=== PATIENT | female | born 1970 | race African-American/Black ===

== ENCOUNTER 2016-12-24 07:26 | Emergency (ER) | payer OTHER ==
[~2016-12-24] VITALS: Ht 165.1 cm; Wt 59.0 kg
[2016-12-24 08:24] LABS: BASOPHILS % 2.1 % (0.0-2.0); EOSINOPHILS % 2.2 % (0.0-5.0); HEMATOCRIT. 26.1 % (36.0-48.0); HEMOGLOBIN. 7.8 g/dL (12.0-16.0); LYMPHOCYTES % 32.8 % (20.0-50.0); MEAN CORPUSCULAR HEMOGLOBIN 18.6 pg (28.0-32.0); MEAN CORPUSCULAR VOLUME 62.4 fL (81.0-99.0); MEAN PLATELET VOLUME 8.7 fl (7.4-10.4); NEUTROPHILS % 53.9 % (40.0-76.0); PLATELET 177 x1000/uL (130-400); RED BLOOD CELL COUNT 4.18 mill/uL (4.2-5.4)
[2016-12-24 08:35] LABS: AMMONIA 13 uMol/L (<32)
[2016-12-24 08:38] LABS: CARBON DIOXIDE 26 mEq/L (21-32); CHLORIDE 108 mEq/L (98-107); CREATINE KINASE 69 IU/L (26-192); ETHANOL BLOOD < 10 mg/dL
[2016-12-24 08:48] LABS: PLATELET ESTIMATE NORMAL
[2016-12-24] MEDS ORDERED: ASPIRIN 325MG TABLET PO ONE (09:45)
[2016-12-24 10:38] LABS: CLARITY URINE CLEAR (CLEAR); COLOR URINE YELLOW (YELLOW); GLUCOSE URINE NEGATIVE (NEGATIVE); KETONES URINE NEGATIVE (NEGATIVE); LEUKOCYTE ESTERASE URINE NEGATIVE (NEGATIVE); NITRITE URINE NEGATIVE (NEGATIVE); OCCULT BLOOD URINE NEGATIVE (NEGATIVE); PH URINE 5.5 (4.5-8.0); PROTEIN URINE NEGATIVE (NEGATIVE); SPECIFIC GRAVITY URINE 1.016 (1.005-1.030); UROBILINOGEN URINE 0.2 E.U./dL (0.2-1.0)
[2016-12-24 11:08] LABS: *AMPHETAMINES SCREEN URINE NEGATIVE (NEGATIVE); *BARBITURATES SCREEN URINE NEGATIVE (NEGATIVE); *BENZODIAZEPINES SCREEN URINE NEGATIVE (NEGATIVE); *COCAINE SCREEN URINE NEGATIVE (NEGATIVE); CANNABINOID URINE SCREEN PRESUMTIVE POSITIVE (NEGATIVE); METHADONE URINE SCREEN NEGATIVE (NEGATIVE); OPIATES URINE SCREEN NEGATIVE (NEGATIVE); PHENCYCLIDINE URINE SCREEN NEGATIVE (NEGATIVE)
[2016-12-24 12:55] VITALS: BP 118/72
== END 2016-12-24 12:59 | disposition left against medical advice (07) ==
LOC: ER 07:59 → EDBEDREQ 10:11 → CANRESERV 11:51 → ENRESERV 11:51 → CANBEDREQ 12:57 → ER 12:59
DX: S00.93XA Contusion of unspecified part of head, initial encounter (principal); R55 Syncope and collapse; M54.2 Cervicalgia; K13.79 Other lesions of oral mucosa; F17.200 Nicotine dependence, unspecified, uncomplicated; F12.10 Cannabis abuse, uncomplicated; W19.XXXA Unspecified fall, initial encounter; Y93.01 Activity, walking, marching and hiking; Y92.89 Other specified places as the place of occurrence of the external cause; Y99.8 Other external cause status
CPT/HCPCS: 36415; 70450; 70551; 71010; 80053; 80305; 81003; 81025; 82140; 82550; 82962; 83605; 83690; 85025; 93005; 99285; G0482; Z7610

== ENCOUNTER 2019-03-04 15:58 | Emergency (ER) | payer SELFPAY ==
[~2019-03-04] VITALS: Ht 167.6 cm; Wt 65.0 kg
[2019-03-05] MEDS ORDERED: ONDANSETRON 4MG ODT PO ONE
[2019-03-05] MEDS ORDERED: FAMOTIDINE 20MG TABLET PO ONE
[2019-03-05] MEDS ORDERED: MAGNESIUM/ALUMINUM HYDROXIDE/SIMETHICONE 30ML UDC PO ONE (00:45)
[2019-03-05] MEDS ORDERED: VISCOUS LIDOCAINE 2% 15 ML UDC MM ONE (00:45)
[2019-03-05] MEDS ORDERED: FAMOTIDINE 20MG/2ML VIAL IV ONE (00:45)
[2019-03-05] MEDS ORDERED: ONDANSETRON HCL 4MG/2ML INJ IV ONE (00:45)
[2019-03-05] MEDS ORDERED: MORPHINE SULFATE 4 MG/ML CPJ (NOT FOR IM USE) IV ONE (01:30)
[2019-03-05 08:13] VITALS: BP 101/55
== END 2019-03-05 09:19 | disposition home or self-care (01) ==
LOC: ER 15:58
DX: R10.13 Epigastric pain (principal); R11.0 Nausea; F12.10 Cannabis abuse, uncomplicated; Z87.19 Personal history of other diseases of the digestive system
CPT/HCPCS: 96374; 96375; 99283; J2270; J2405; J3490; Z7610; Q0162